=== PATIENT | female | born 2005 | race African-American/Black ===

== ENCOUNTER 2024-04-29 15:44 | Emergency (ER) | payer OTHER ==
[~2024-04-29] VITALS: Ht 157.5 cm; Wt 72.1 kg
[2024-04-29 15:46] VITALS: BP 118/70; TEMP 99.1; O2SAT 99
[2024-04-29] MEDS ORDERED: LIDO100S29 PO (16:21)
[2024-04-29] MEDS ORDERED: IBUP1TAB6 PO (16:21)
== END 2024-04-29 16:51 | disposition home or self-care (01) ==
LOC: M ED 15:44
DX: J02.9 Acute pharyngitis, unspecified (principal); Z91.013 Allergy to seafood; Z79.1 Long term (current) use of non-steroidal anti-inflammatories (NSAID)